=== PATIENT | male | born 2005 | race Caucasian/White ===

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

== ENCOUNTER 2025-01-16 19:25 | Emergency (ER) | payer OTHER, SELFPAY ==
[2025-01-16 19:34] VITALS: BP 139/79; PULSE 91; RESP 18; TEMP 36.6; O2SAT 100; BMI 24.3
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
[2025-01-16 19:56] VITALS: BP 126/91; BP 142/84; PULSE 102; RESP 18; TEMP 36.6; O2SAT 99
--- NOTE | 2025-01-16 20:07 | PC.NURSE ---
FSBS 108 @ [id number]
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
[2025-01-16 20:21] LABS: Microscopic, Urine URINE MICROSCOPIC (MICROSCOPIC)
[2025-01-16 20:25] LABS: Appearance,Urine Slightly Cloudy (Clear); Color,Urine Dark Yellow (Yellow); Glucose,Urine (UA) Negative (Negative); Specific Gravity, Urine >= 1.030 (1.005-1.030)
[2025-01-16 20:26] LABS: Bilirubin,Urine 1+ (Negative); Blood, Urine Negative (Negative); Ketones,Urine Trace (Negative); Leukocyte Esterase,Urine Negative (Negative); Nitrate,Urine Negative (Negative); Urobilinogen,Urine 0.2 EU/dl (0.2)
[2025-01-16 20:34] LABS: Basophils % 0.3 % (0.1-2.0); Eosinophils % 0.3 % (0.1-12.0); Hematocrit 41.9 % (42.0-52.0); Hemoglobin 14.3 g/dL (14.1-18.0); Lymphocytes # 1.7 K/mm3 (0.7-4.5); Lymphocytes % 17.8 % (10-50); Mean Corpuscular HGB Conc 34.1 g/dL (31.8-35.4); Mean Corpuscular Hemoglobin 30.4 pg (27.0-31.2); Mean Corpuscular Volume 89.1 fl (80-94); Mean Platelet Volume 10.5 fl (7.4-10.4); Monocytes # 0.4 K/mm3 (0.1-1.0); Monocytes % 4.6 % (1.7-9.3); Neutrophils % 75.1 % (37.0-80.0); Platelet Count 264 K/mm3 (142-424); Red Cell Distribution Width 11.7 % (11.5-17.5); White Blood Count 9.3 K/mm3 (4.5-13.0)
[2025-01-16 20:39] LABS: Albumin Level 5.3 g/dl (3.5-5.0); Chloride 101 mmol/L (98-107); Potassium 3.4 mmoL/L (3.5-5.1); Sodium 139 mmol/L (136-145)
[2025-01-16 20:40] LABS: WBC,Urine Occasional #/hpf (0-3)
[2025-01-16 20:41] LABS: Bacteria,Urine Trace /lpf; Mucus,Urine 1+ /lpf
[2025-01-16 20:42] LABS: Alanine Aminotransferase 31 U/L (12-78); Albumin/Globulin Ratio 2.3 (1.1-1.8); Alkaline Phosphatase 70 U/L (38-126); Anion Gap 11.4 mEq/L (5-15); Aspartate Amino Transferase 42 U/L (17-59); Blood Urea Nitrogen 7 mg/dl (9-20); Carbon Dioxide 30 mmol/L (22.0-30.0); Creatinine Clearance Estimated 144 mL/min (50-200); Estimated Glomerular Filt Rate 109 ml/min (>60); GFR (African American) 132 ML/MIN (>60); Globulin 2.3 g/dL (1.3-3.2); Total Protein,Serum 7.6 g/dl (6.3-8.2)
[2025-01-16 20:43] LABS: Calcium 9.9 mg/dl (8.4-10.2); Glucose 88 mg/dl (74-100)
[2025-01-16] MEDS: 0.9 % SODIUM CHLORIDE 50 ML VIAL 100 ML IV (20:49)
[2025-01-16] MEDS: IOPAMIDOL-370 (76%);100ML BOTTLE 160 ML IV (20:50)
[2025-01-16] MEDS: SODIUM CHLORIDE 0.9% 10ML SYR (RAD ONLY) 10 ML IV (20:50)
--- NOTE | 2025-01-16 20:55 | PC.NURSE ---
Called radiology to power share images to [facility] at this time
[2025-01-16] MEDS: LACTATED RINGERS 1000ML 1,000 ML 999 ML IV (21:06)
[2025-01-16] MEDS: KETOROLAC 30MG/ML VIAL 15 MG IV (21:06)
[2025-01-16 21:07] LABS: Activated Partial Thrombo Time 23.9 seconds (22.8-30.6); INR 1.05 (0.9-1.1); Prothrombin Time 11.7 seconds (10.1-12.5)
[2025-01-16 21:56] VITALS: BP 142/83; PULSE 108; RESP 18; TEMP 36.7; O2SAT 99
== END 2025-01-16 22:00 | disposition home or self-care (01) ==
PROVIDERS: Emergency Provider Emergency Medicine; PCP Nurse Practitioner Family
DX: M54.50 Low back pain, unspecified (principal); M54.6 Pain in thoracic spine; M54.9 Dorsalgia, unspecified; H53.8 Other visual disturbances; H53.19 Other subjective visual disturbances; R53.83 Other fatigue; Z72.0 Tobacco use; V86.69XA Passenger of other special all-terrain or other off-road motor vehicle injured in nontraffic accident, initial encounter; Y93.89 Activity, other specified; Y92.9 Unspecified place or not applicable
CPT/HCPCS: 70450; 70496; 70498; 71045; 71275; 72125; 72128; 72131; 72170; 74174; 80053; 81001; 85025; 85610; 85730; 96361; 96374; 99291; J1885; J7120; Q9967